=== PATIENT | female | born 1970 | race Caucasian/White ===

== ENCOUNTER → 2016-07-25 15:25 | Outpatient (CLI) | payer MEDICARE | END | disposition home or self-care (01) | LOC: D.LABREF 15:25 | DX: L98.9 Disorder of the skin and subcutaneous tissue, unspecified (principal) ==

== ENCOUNTER 2019-09-04 18:57 | Emergency (ER) | payer MEDICARE ==
[~2019-09-04] VITALS: Ht 154.9 cm; Wt 62.6 kg
[2019-09-04 19:27] VITALS: Ht 154.9 cm; Wt 62.6 kg
[2019-09-04] MEDS ORDERED: COZAAR25 MG PO (19:31)
[2019-09-04] MEDS ORDERED: FUROSEMIDE20 MG PO (19:31)
[2019-09-04] MEDS ORDERED: PREVACID30 MG PO (19:31)
[2019-09-04] MEDS ORDERED: GEODON80 MG PO (19:32)
[2019-09-04] MEDS ORDERED: FLUVOXAMINE MAL50 MG PO (19:32)
[2019-09-04] MEDS ORDERED: ZOLOFT25 MG (19:32)
[2019-09-04] MEDS ORDERED: OXYCODONE HCL E20 MG (19:33)
[2019-09-04] MEDS ORDERED: NEURONTIN 300300 MG PO (19:34)
[2019-09-04] MEDS ORDERED: OXYCODONE HCL5 M1 PO (19:34)
[2019-09-04] MEDS ORDERED: BACLOFEN10 MG PO (19:34)
[2019-09-04] MEDS ORDERED: KLONOPIN0.5 MG PO (19:35)
[2019-09-04] MEDS ORDERED: ADDERALL XR 1515 M1 PO (19:35)
[2019-09-04 19:54] LABS: BILIRUBIN NEGATIVE (NEGATIVE); GLUCOSE NEGATIVE (NEGATIVE); KETONE NEGATIVE (NEGATIVE); NITRITE NEGATIVE (NEGATIVE); UROBILINOGEN NORMAL (NORMAL)
[2019-09-04 20:00] LABS: AMORPHOUS SEDIMENT <1+ /lpf (NONE SEEN); BACTERIA MODERATE /hpf (NEGATIVE); RED CELLS - URINE NONE SEEN /hpf (0-5)
[2019-09-04 20:24] LABS: BASOPHILS 0.5 % (0-2); EOSINOPHILS 1.9 % (0-7); HEMATOCRIT 39.5 % (36.0-48.0); HEMOGLOBIN 12.9 g/dL (12-16); LYMPHOCYTES 48.9 % (15-50); MCH 29.8 pg (26.0-34.0); MCHC 32.7 g/dL (31.0-37.0); MCV 91.2 fL (80.0-100.0); MONOCYTES 12.8 % (2-11); NEUTROPHILS 35.9 % (40-80); PLATELET COUNT 286 10x3/uL (130-400); RBC 4.33 10x6/uL (4.00-5.40); RDW 13.8 % (11.5-14.5); WBC 6.2 10x3/uL (4.8-10.8)
[2019-09-04 20:34] LABS: ANION GAP 6.4 mmol/L (8-16); CARBON DIOXIDE 32.5 mmol/L (21.0-32.0); POTASSIUM - SERUM 3.9 mmol/L (3.5-5.1)
[2019-09-04 20:40] LABS: ALBUMIN 3.6 g/dL (3.4-5.0); BILIRUBIN - TOTAL 0.25 mg/dL (0.2-1.3); C-REACTIVE PROTEIN 2.4 mg/dL (0.0-0.9); PROTEIN - SERUM 7.4 g/dL (6.4-8.2)
[2019-09-04] MEDS ORDERED: MEDROL DOSE PACK4 MG PO (21:07)
[2019-09-04] MEDS ORDERED: METHOCARBAMOL750 MG PO (21:07)
[2019-09-04] MEDS ORDERED: KEFLEX500 MG PO (21:09)
[2019-09-04 21:54] VITALS: BP 161/90
== END 2019-09-04 21:54 | disposition home or self-care (01) ==
LOC: D.ER 18:57
PROVIDERS: Family Medicine
DX: M54.5 Low back pain (principal); N39.0 Urinary tract infection, site not specified